=== PATIENT | female | born 1960 | race Caucasian/White ===

== ENCOUNTER 2017-06-14 17:13 | Emergency (ER) | payer OTHER ==
[~2017-06-14] VITALS: Ht 167.6 cm; Wt 61.2 kg
[~2017-06-14 17:13] MED LIST: CIPR500T94 PO; ONDA4TAB10 SL; PHEN-318 PO; TRAM-48 PO
[2017-06-14 17:28] VITALS: BP 133/78
[2017-06-14] MEDS ORDERED: ONDANSETRON PF 4 MG/2 ML VIAL. ONE (17:49)
[2017-06-14] MEDS ORDERED: HYDROmorphone PF 1 MG/ML DISP.SYRIN ONE (17:50)
[2017-06-14] MEDS ORDERED: HYDROmorphone PF 1 MG/ML DISP.SYRIN IV ONE (18:00)
[2017-06-14] MEDS ORDERED: ONDANSETRON PF 4 MG/2 ML VIAL. IV ONE (18:00)
[2017-06-14] MEDS ORDERED: IBUPROFEN 600 MG TABLET. PO ONE ×2 (18:10→18:15)
[2017-06-14] MEDS ORDERED: HYDROcodone/APAP 5/325MG 1 TAB TABLET ONE (18:10)
[2017-06-14] MEDS ORDERED: ONDANSETRON ODT 4 MG TAB.RAPDIS ONE (18:10)
[2017-06-14] MEDS ORDERED: HYDROcodone/APAP 5/325MG 1 TAB TABLET PO ONE (18:15)
[2017-06-14] MEDS ORDERED: ONDANSETRON ODT 4 MG TAB.RAPDIS PO ONE (18:15)
[2017-06-14] MEDS ORDERED: HYDR-971 PO (18:34)
[2017-06-14] MEDS ORDERED: IBUP600T16 PO (18:34)
--- NOTE | 2017-06-14 18:34 | PHYS DOC ---
Past History Past Medical History: No Pertinent History Past Surgical History: Cholecystectomy Alcohol Use: Rarely Drug Use: None Adult General Chief Complaint Chief Complaint: WRIST PAIN HPI HPI Patient is a 48-year-old female who presents here today secondary to pain to both forearms left greater than right that she incurred after falling down tripping over a loose board on the floor. Patient has a loss of consciousness. Patient has any pain in her hips and below. Patient has any pain in her neck and above. Patient has any head trauma or loss of consciousness. Patient has any dizziness presyncope or syncope. Patient is complaining of pain to her elbow wrist and forearm as well as her shoulders and her right chest wall after the fall. Patient has no other complaints at this time. Review of systems: Constitutional: Denies fever or chills Eyes: Denies change in visual acuity, redness, or eye pain HENT: Denies nasal congestion or sore throat All other systems were reviewed and found to be within normal limits, except as documented in this note. Physical exam Constitutional: Well developed, well nourished, no acute distress, non-toxic appearance. HENT: Normocephalic, atraumatic, bilateral external ears normal, oropharynx moist, no oral exudates, nose normal. Eyes: PERRLA, EOMI, conjunctiva normal, no discharge. Neck: Normal range of motion, no tenderness, supple, no stridor. Cardiovascular:Heart rate regular rhythm, Lungs & Thorax: Bilateral breath sounds clear to auscultation Abdomen: Nondistended. Skin: Warm, dry, no erythema, no rash. Back: No tenderness, no CVA tenderness. Extremities: No tenderness, no cyanosis, no clubbing, ROM intact, no edema. Neurologic: Alert and oriented X 3, normal motor function, normal sensory function, no focal deficits noted. Psychologic: Affect normal, judgement normal, mood normal. ER physical exam is significant for: Tenderness to palpation to both forearms left greater than right. Patient has no bony deformity soft tissue swelling or neurovascular compromise. Patient is neurovascularly intact. She has full range of motion to her elbows and wrist with some mild discomfort. Patient's shoulders are without deformity and full range of motion is intact. Patient left tenderness palpation to her right scapula and right anterior chest wall. Bilateral forearm x-rays reveal no acute fracture dislocation as interpreted by the ER physician. I lateral wrist x-rays reveal no acute fracture or dislocation as interpreted by the ER physician. Assessment and plan: 1. Fall with pain to her forearms bilaterally. Patient is given [place] and Zofran and ibuprofen assist her with the pain. No emesis of bony deformity on the x-rays. Patient be given lesion the ER. Patient was placed in an arm sling on the left. Patient be sent home with [place] and ibuprofen assist her with the pain. Patient instructed to follow-up with her primary care physician for further evaluation of her pain persists for greater than 48 hours. Current Medications Current Medications Current Medications Medications (Trade) Dose Ordered Sig/Babatunde Start Time Stop Time Status Last Admin Dose Admin Acetaminophen/ Hydrocodone Bitart (Lortab 5/325) 2 tab 1X ONCE 06/14/17 18:15 06/14/17 18:16 DC 06/14/17 18:12 2 TAB Hydromorphone HCl (Dilaudid) 0.5 mg 1X ONCE 06/14/17 18:00 06/14/17 18:01 DC Ibuprofen (Motrin) 600 mg 1X ONCE 06/14/17 18:15 06/14/17 18:16 DC 06/14/17 18:12 600 MG Ondansetron HCl (Zofran Odt) 4 mg 1X ONCE 06/14/17 18:15 06/14/17 18:16 DC 06/14/17 18:11 4 MG Ondansetron HCl (Zofran) 4 mg 1X ONCE 06/14/17 18:00 06/14/17 18:01 DC Allergies Allergies Allergies Coded Allergies Type Severity Reaction Last Updated Verified No Known Drug Allergies 06/14/17 No Current Patient Data Vital Signs Vital Signs Date Time Temp Pulse Resp B/P (MAP) Pulse Ox O2 Delivery O2 Flow Rate FiO2 06/14/17 18:12 18 Room Air 06/14/17 17:28 98.3 74 100 EKG EKG [] Radiology/Procedures Radiology/Procedures [] Course & Med Decision Making Course & Med Decision Making Pertinent Labs and Imaging studies reviewed. (See chart for details) [] Dragon Disclaimer Dragon Disclaimer This electronic medical record was generated, in whole or in part, using a voice recognition dictation system. Departure Departure: Impression: Primary Impression: Pain in both forearms Additional Impression: Fall Disposition: HOME, SELF-CARE Condition: IMPROVED Referrals: MELA MELO DO (PCP) Patient Instructions: Musculoskeletal Pain Scripts Hydrocodone Bit/Acetaminophen (NORCO 5-325 TABLET) 1 Each Tablet 1 TAB PO PRN Q6HRS Y for PAIN, #12 TAB 0 Refills Prov: NANCY REED MD 06/14/17 Ibuprofen (IBUPROFEN) 600 Mg Tablet 600 MG PO QID Y for PAIN, #20 Prov: NANCY REED MD 06/14/17 Problem Qualifiers NANCY REED MD Jun 14, 2017 18:34
--- NOTE | 2017-06-15 08:24 | RAD ---
FOREARM BILAT History:Fall, bilateral forearm pain Comparison: None Findings:2 views bilateral forearms are submitted, total 4 views. No acute fracture is identified. Impression: 1.No acute osseous abnormality is identified.
--- NOTE | 2017-06-15 08:24 | RAD ---
WRIST BILAT 3V History:Fall, bilateral wrist pain Comparison: None Findings:3 views of the wrists bilaterally for a total of 6 views are submitted. No acute fracture or dislocation is identified of either wrist. Impression: 1.No acute osseous abnormality is identified.
== END 2017-06-14 18:42 | disposition home or self-care (01) ==
LOC: ER 17:13
DX: M79.632 Pain in left forearm (principal); M79.631 Pain in right forearm; M25.531 Pain in right wrist; M25.532 Pain in left wrist; W01.0XXA Fall on same level from slipping, tripping and stumbling without subsequent striking against object, initial encounter; Y93.89 Activity, other specified; Y99.8 Other external cause status; Y92.89 Other specified places as the place of occurrence of the external cause
CPT/HCPCS: 73090; 73110; 99284; Q0162

== ENCOUNTER → 2017-10-03 | Outpatient (CLI) | payer OTHER ==
[~2017-10-03] MED LIST changes: +HYDR-971 PO; +IBUP600T16 PO
--- NOTE | 2017-10-03 15:58 | RAD ---
Bone densitometry scan, 10/03/2017: History: Osteoporosis screening The lumbar spine and right hip were examined utilizing a DEXA technique. The bone mineral density of the lumbar spine as measured from the L1-L4 levels is 0.95 g/sq cm. This yields a T score of -1.9 compatible with osteopenia. The total T score at the right hip is -2.4, also compatible with osteopenia. IMPRESSION: Osteopenia
== END | disposition home or self-care (01) ==
LOC: DXRAD 13:51
PROVIDERS: ATTEND Family Medicine
DX: Z13.820 Encounter for screening for osteoporosis (principal); M85.80 Other specified disorders of bone density and structure, unspecified site; Z79.899 Other long term (current) drug therapy
CPT/HCPCS: 77080